=== PATIENT | female | born 2000 | race Caucasian/White ===

== ENCOUNTER 2022-06-08 12:15 | Outpatient (CLI) | payer BC, SELFPAY ==
--- NOTE | ~2022-06-08 | US_ITS ---
EXAMINATION: US OB follow up DATE: 06/08/2022 14:17 INDICATION: growth check. Third trimester. TECHNIQUE: Real-time ultrasound of the pelvis was performed. COMPARISON: None. FINDINGS: There is a single living fetus in vertex presentation. The placenta is fundal. heart rate is 1 42 beats per minute (bpm). The amniotic fluid index is 8.4 cm, which is normal. The following biometric data were obtained: Biparietal diameter (BPD): 8.6 cm; head circumference (HC): 32.7 cm; abdominal circumference (AC): 30 .5 cm; femur length (FL): 6.7 cm. These measurements are concordant. Estimated weight is 2509 g +/- 376 g, which correlates with the 16th percentile when 07/04/22 is used as estimated date of delivery. As single measurements, these parameters are each equal to the following estimated gestational ages: BPD: 34 weeks 4 days. HC: 37 weeks 0 days. AC: 34 weeks 3 days. FL: 34 weeks 4 days. estimated gestational age based solely on measurements from this exam is 35 weeks 1 days +/- 2 weeks 3 days. IMPRESSION: 1. Single living fetus in vertex presentation. 2. Estimated weight is 2509 g +/- 376 g, which correlates with the 16th percentile when 07/04/22 is used as estimated date of delivery. Reviewed, dictated and finalized at location A. IFICATION WRITER
[2022-06-08 12:44] VITALS: BP 154/82; PULSE 100
[2022-06-08 12:45] VITALS: BP 145/97; PULSE 83
[2022-06-08 12:50] LABS: Basophils Percent Auto 0.3 % (0.2-1.2); Eosinophils Absolute Auto 0.1 K/mm3 (0-0.3); Eosinophils Percent Auto 0.4 % (0-4.4); Hematocrit 35.1 % (37.0-47.0); Hemoglobin 11.4 g/dL (12.0-15.0); Immature Granulocyte Absolute 0.12 K/mm3 (0.00-0.031); Lymphocytes Absolute Auto 2.09 K/mm3 (0.9-3.2); Lymphocytes Percent Auto 17.8 % (18.3-44.2); Mean Corpuscular HGB Conc 32.5 g/dl (32-36); Mean Corpuscular Hemoglobin 30.2 pg (26-34); Mean Corpuscular Volume 93.1 fl (80-100); Mean Platelet Volume 9.1 fl (7.4-10.4); Monocytes Absolute Auto 0.7 K/mm3 (0.1-0.6); Monocytes Percent Auto 6.2 % (2.6-8.5); Neutrophils Absolute Auto 8.7 K/mm3 (1.3-6.7); Neutrophils Percent Auto 74.3 % (45.5-73.1); Platelet Count Result 274 k/mm3 (150-375); Red Blood Count 3.77 M/mm3 (4.2-5.4); Red Cell Distribution Width 13.2 % (11.5-14.5); White Blood Count 11.7 K/mm3 (4.5-10.0)
[2022-06-08 13:00] VITALS: BP 148/98; PULSE 98
[2022-06-08 13:09] LABS: Alanine Aminotransferase 17 U/L (6-35); Alkaline Phosphatase 182 U/L (38-126); Anion Gap 6 mmol/L (8-16); Aspartate Amino Transferase 20 U/L (14-36); Bilirubin,Total 0.3 mg/dL (0.2-1.3); Blood Urea Nitrogen 3 mg/dL (7-17); Calcium 8.5 mg/dL (8.4-10.2); Carbon Dioxide 23 mmol/L (22-30); Chloride 109 mmol/L (98-107); Estimated Glomerular Filt Rate > 60; Glucose 77 mg/dL (65-110); Potassium 3.3 mmol/L (3.4-5.0); Sodium 138 mmol/L (137-145); Uric Acid 2.9 mg/dL (2.5-7.5)
[2022-06-08 13:11] LABS: Add Urine Microscopic? YES; Appearance Urine Slightly Cloudy (Clear); Color Urine Yellow (Yellow)
[2022-06-08 13:12] LABS: Bilirubin Urine Negative (Negative); Blood Urine Trace-Lysed (Negative); Glucose Urine UA Negative (Negative); Ketones Urine Negative (Negative); Nitrate Urine Negative (Negative); Protein Urine Negative (Negative); Specific Grav Ur 1.015 (1.001-1.035)
[2022-06-08 13:13] LABS: Leukocyte Esterase Ur 2+ LEU/UL (NEGATIVE); Urobilinogen Urine 0.2 mg/dL (<2.0)
[2022-06-08 13:14] LABS: Creatinine Urine 31.4 mg/dL; Total Protein Urine Random 15 mg/dL; Ur Ttl Prot Creatinine Ratio 0.48 mg/mg (0-0.20)
[2022-06-08 13:15] VITALS: BP 137/84; PULSE 102
[2022-06-08 13:16] LABS: Bacteria Urine Trace /hpf; RBC Urine 0-2 /hpf (0-2); Squamous Epithelial Cell Urine Many /hpf (Few)
[2022-06-08 13:30] VITALS: BP 142/96; PULSE 103
[2022-06-08 14:00] VITALS: BP 137/84; PULSE 93
[2022-06-08] MEDS: BETAMETHASONE SOD PHOS/ACETATE 30 MG/5 ML VIAL 12 MG IM (14:28)
== END 2022-06-08 14:40 | disposition home or self-care (01) ==
LOC: ANHOBOP 12:22 → ANHOBPP 12:24
PROVIDERS: Advanced Practice Midwife; PCP Physician Assistant Medical; Visit Provider Obstetrics & Gynecology Gynecology
DX: O13.9 Gestational [pregnancy-induced] hypertension without significant proteinuria, unspecified trimester (principal); Z3A.00 Weeks of gestation of pregnancy not specified
CPT/HCPCS: 36415; 59025; 76816; 80053; 81001; 82570; 84156; 84550; 85025; 87086; 87088; 96372; 99199; J0702

== ENCOUNTER 2022-06-09 14:22 | Outpatient (CLI) | payer BC, SELFPAY ==
[2022-06-09] MEDS: BETAMETHASONE SOD PHOS/ACETATE 30 MG/5 ML VIAL 12 MG IM (14:31)
[2022-06-09 17:34] LABS: Collection Time Urine 24 HOURS
[2022-06-09 17:38] LABS: Patient Weight 184 Lbs; Total Volume 24 Hour Urine 5200 ml
[2022-06-09 17:43] LABS: Total Volume 24 Hour Urine 5200 ml
[2022-06-09 17:52] LABS: Total Protein Urine Random 18 mg/dL
[2022-06-09 17:53] LABS: Creatinine Clearance Urine 160.2 ml/min (75-125); Creatinine Urine 24.4 mg/dL
[2022-06-09 18:02] LABS: Total Protein Urine 24 Hr 936 mg/24hr (28-141)
== END 2022-06-09 14:23 | disposition home or self-care (01) ==
LOC: ANHOBOP 14:26
PROVIDERS: PCP Physician Assistant Medical; Visit Provider Obstetrics & Gynecology Gynecology
DX: O13.9 Gestational [pregnancy-induced] hypertension without significant proteinuria, unspecified trimester (principal); Z3A.00 Weeks of gestation of pregnancy not specified
CPT/HCPCS: 81050; 82575; 84156; 96372; J0702

== ENCOUNTER 2022-06-10 10:01 | Inpatient (IN) | payer BC, SELFPAY ==
[2022-06-10] VITALS (56 sets, daily range): BP systolic 63–144; BP diastolic 37–95; PULSE 77–260; O2SAT 94–100; BMI 27.3
[2022-06-10 11:25] LABS: Basophils Percent Auto 0.2 % (0.2-1.2); Hematocrit 31.7 % (37.0-47.0); Hemoglobin 10.6 g/dL (12.0-15.0); Immature Granulocyte Absolute 0.26 K/mm3 (0.00-0.031); Immature Granulocyte Percent A 1.3 % (0-0.5); Lymphocytes Absolute Auto 2.67 K/mm3 (0.9-3.2); Lymphocytes Percent Auto 13.6 % (18.3-44.2); Mean Corpuscular HGB Conc 33.4 g/dl (32-36); Mean Corpuscular Hemoglobin 29.7 pg (26-34); Mean Corpuscular Volume 88.8 fl (80-100); Mean Platelet Volume 9.5 fl (7.4-10.4); Monocytes Absolute Auto 1.2 K/mm3 (0.1-0.6); Monocytes Percent Auto 5.9 % (2.6-8.5); Neutrophils Absolute Auto 15.5 K/mm3 (1.3-6.7); Platelet Count Result 295 k/mm3 (150-375); Red Blood Count 3.57 M/mm3 (4.2-5.4); Red Cell Distribution Width 13.2 % (11.5-14.5); White Blood Count 19.6 K/mm3 (4.5-10.0)
[2022-06-10 11:35] LABS: Alanine Aminotransferase 18 U/L (6-35); Albumin Level 3.7 g/dL (3.5-5.1); Alkaline Phosphatase 176 U/L (38-126); Anion Gap 6 mmol/L (8-16); Aspartate Amino Transferase 19 U/L (14-36); Bilirubin,Total 0.3 mg/dL (0.2-1.3); Blood Urea Nitrogen 3 mg/dL (7-17); Calcium 8.7 mg/dL (8.4-10.2); Carbon Dioxide 22 mmol/L (22-30); Chloride 106 mmol/L (98-107); Estimated Glomerular Filt Rate > 60; Glucose 90 mg/dL (65-110); Potassium 3.2 mmol/L (3.4-5.0); Sodium 134 mmol/L (137-145)
[2022-06-10 11:36] LABS: Uric Acid 2.3 mg/dL (2.5-7.5)
[2022-06-10] MEDS: miSOPROStol 50 MCG TABLET VAGINAL (11:50)
[2022-06-10 12:16] LABS: HIV 1/2 Ab P24 Ag Result Negative (Negative)
--- NOTE | 2022-06-10 17:11 | WPDOBADMIT ---
Obstetrics - Admit Note Admission Note: record reviewed. No pertinent additions to the history and/or any subsequent changes in the physical findings that are not consistent with the expected course of the were found. Additions to the history and/or subsequent changes in the physical findings follow. Preelampsia.
--- NOTE | 2022-06-10 17:30 | PM.OBPNLAB ---
Pain Control Date/time seen: 06/10/22 17:20 Pain control: tolerating well Comments: Feeling intermittent cramping/tightening Pelvic Exam Dilation (cm): 1 (1.5) Effacement (%): 50 station: -3 (moderate consistency) Amniotic membrane status: Intact Contractions Monitor mode: External Contraction frequency: 3 Contraction duration: 60 Status status: Category ll Comments: Reassured by moderate variability and accelerations. Assessment and Plan Assessment: induction ongoing Comments: CNM to bedside at about 1700. Discussed preeclampsia in detail and answered questions. Discussed IOL process and expectations. SVE 1.5/50/-3 and moderate consistency. Discussed option of placing tavarez balloon for cervical ripening and pt is agreeable. Placed pt in lithotomy position. Tavarez catheter inserted through cervical os using stylette. Inflated with 60 ml sterile saline and stylette removed. Tubing secured to pt's thigh. Plan for RN to place gentle traction on the catheter hourly. Due to frequency of contractions, will not place 2nd cytotec or start oxytocin at this time. In one hour, if ctx have dissipated and FHTs remain reassuring, plan to place Cytotec 25mcg. Pt's mother and partner present and supportive. Anticipate vaginal .
[2022-06-10] MEDS: fentaNYL CITRATE INJ (*CRX) 100 MCG/2 ML VIAL 50 MCG IV PUSH (17:54)
--- NOTE | 2022-06-10 18:05 | WPDANESEPP ---
Anes - Eval Pre Procedure Procedure: labor epidural Date/Time: 06/10/22 18:05 Pre Op Diagnosis: IOL Patient Data Age: 21 Gender: F Height: 1.75 m Weight: 84 kg Last Vital Signs Pulse 94 06/10/22 16:45 BP 134/83 06/10/22 16:45 Pulse Ox 100 06/10/22 17:01 Allergies Allergy/AdvReac Type Severity Reaction Status Date / Time No Known Allergies Allergy Unverified 11/01/13 15:22 Home Medications Medication Instructions Recorded Confirmed Type vit no.95-ferrous 1 tablet PO DAILY 06/10/22 06/10/22 History fumarate 28 mg-folic acid 800 mcg tablet () Laboratory Tests 06/10/22 06/10/22 06/10/22 10:38 10:38 10:38 WBC 19.6 K/mm3 H K/mm3 (4.5-10.0) RBC 3.57 M/mm3 L M/mm3 (4.2-5.4) Hgb 10.6 g/dL L g/dL (12.0-15.0) Hct 31.7 % L % (37.0-47.0) MCV 88.8 fl fl (80-100) MCH 29.7 pg pg (26-34) MCHC 33.4 g/dl g/dl (32-36) RDW 13.2 % % (11.5-14.5) Plt Count 295 k/mm3 k/mm3 (150-375) MPV 9.5 fl fl (7.4-10.4) Immature Gran % (Auto) 1.3 % H % (0-0.5) Neut % (Auto) 79.0 % H % (45.5-73.1) Lymph % (Auto) 13.6 % L % (18.3-44.2) [place] % (Auto) 5.9 % % (2.6-8.5) Eos % (Auto) 0.0 % % (0-4.4) Baso % (Auto) 0.2 % % (0.2-1.2) Lymph # (Auto) 2.67 K/mm3 K/mm3 (0.9-3.2) [place] # (Auto) 1.2 K/mm3 H K/mm3 (0.1-0.6) Eos # (Auto) 0.0 K/mm3 K/mm3 (0-0.3) Baso # (Auto) 0.0 K/mm3 K/mm3 (0.0-0.1) Abs Immat Gran (auto) 0.26 K/mm3 H K/mm3 (0.00-0.031) Absolute Neuts (auto) 15.5 K/mm3 H K/mm3 (1.3-6.7) Absolute Nucleated RBC 0.0 K/mm3 K/mm3 (0.0-0.012) Nucleated RBC % 0.0 % % (0.0-0.2) Sodium Potassium Chloride Carbon Dioxide Anion Gap BUN Creatinine Estim Creat Clear Calc Estimated GFR Glucose Uric Acid 2.3 mg/dL L mg/dL (2.5-7.5) Calcium Total Bilirubin AST ALT Alkaline Phosphatase Total Protein Albumin RPR HIV 1&2 Ab/P24 Ag 4thGn Negative (Negative) Blood Type Antibody Screen 06/10/22 06/10/22 06/10/22 10:38 10:38 10:39 WBC RBC Hgb Hct MCV MCH MCHC RDW Plt Count MPV Immature Gran % (Auto) Neut % (Auto) Lymph % (Auto) [place] % (Auto) Eos % (Auto) Baso % (Auto) Lymph # (Auto) [place] # (Auto) Eos # (Auto) Baso # (Auto) Abs Immat Gran (auto) Absolute Neuts (auto) Absolute Nucleated RBC Nucleated RBC % Sodium 134 mmol/L L mmol/L (137-145) Potassium 3.2 mmol/L L mmol/L (3.4-5.0) Chloride 106 mmol/L mmol/L (98-107) Carbon Dioxide 22 mmol/L mmol/L (22-30) Anion Gap 6 mmol/L L mmol/L (8-16) BUN 3 mg/dL L mg/dL (7-17) Creatinine 0.40 mg/dL L mg/dL (0.7-1.0) Estim Creat Clear Calc Not Reportable Estimated GFR > 60 (59 - ) Glucose 90 mg/dL mg/dL (65-110) Uric Acid Calcium 8.7 mg/dL mg/dL (8.4-10.2) Total Bilirubin 0.3 mg/dL mg/dL (0.2-1.3) AST 19 U/L U/L (14-36) ALT 18 U/L U/L (6-35) Alkaline Phosphatase 176 U/L H U/L (38-126) Total Protein 7.0 g/dL g/dL (6.3-8.2) Albumin 3.7 g/dL g/dL (3.5-5.1) RPR Pending HIV 1&2 Ab/P24 Ag 4thGn Blood Type
[2022-06-10] MEDS: miSOPROStol 25 MCG TABLET VAGINAL (18:30)
[2022-06-11] VITALS (212 sets, daily range): BP systolic 74–152; BP diastolic 34–103; PULSE 25–193; RESP 16–18; TEMP 36.8–37.5; O2SAT 79–100
[2022-06-11] MEDS: LACTATED RINGERS 1,000 ML 125 ML IV CONT ×3 (03:05→12:48)
[2022-06-11] MEDS: AMPICILLIN 2 GM/NS 100 ML 2 GM/100 ML BAG IVPB (04:30)
[2022-06-11] MEDS: OXYTOCIN 30 UNITS/NS 500 ML 30 UNITS/500 ML BAG 6 UNITS IV CONT (04:30)
--- NOTE | 2022-06-11 07:37 | PM.OBPNLAB ---
Pain Control Date/time seen: 06/11/22 07:20 Pain control: tolerating well and epidural Pelvic Exam Dilation (cm): 5 (1.5) Effacement (%): 50 station: -2 (soft) Amniotic membrane status: Intact Comments: head well applied to cervix Contractions Monitor mode: External Contraction frequency: 3 (not tracing well via toco) Contraction duration: 60 Contraction pattern: Regular Contraction phase: Contraction Contraction intensity: Strong/Firm Status status: Category ll Assessment and Plan Pitocin rate (mU/min): 24 Assessment: induction ongoing Comments: CNM to bedside. Discussed plan of care with pt, her partner, and her mother. Discussed recommendation for amniotomy including risks and benefits. Discussed placement of IUPC. Patient agreeable. Amniotomy performed with return of moderate amount of clear fluid. IUPC inserted but jeffrey blood returned. IUPC removed. Second IUPC placed more anterior. Initially blood-tinged fluid returns, this became more jeffrey. Contractions palpated externally which corresponded with the peak of IUPC tracing. Plan to leave this IUPC in place. Will not flush. If amnio infusion is indicated would recommend placement of an IUPC on the patient's right side. Pitocin decreased to 10 mL an hour with AROM,
--- NOTE | 2022-06-11 08:06 | PM.OBPNLAB ---
Pain Control Date/time seen: 06/11/22 08:06 Pelvic Exam Dilation (cm): 5 (1.5) Effacement (%): 50 station: -2 (soft) Amniotic membrane status: Ruptured Contractions Monitor mode: Internal Status status: Category ll Assessment and Plan Pitocin rate (mU/min): 10 Comments: Due to variable decelerations, new IUPC placed on pt's right side. Clear/very light blood tinged fluid returned. Pt positioned in high fowlers. Recommend frequent maternal position changes PRN. Anticipate vaginal .
[2022-06-11] MEDS: AMPICILLIN 1 GM/NS 50 ML 1 GM/50 ML BAG IVPB (08:45)
[2022-06-11] MEDS: TRANEXAMIC ACID 1,000MG/ISO100 1,000 MG/100 ML BAG 200 MG IVPB (11:54)
[2022-06-11 11:56] LABS: Rapid Plasma Reagin Non-Reactive (NonReactive)
[2022-06-11] MEDS: miSOPROStol 200 MCG TABLET 800 MCG RECTAL (11:58)
[2022-06-11] MEDS: OXYTOCIN 30 UNITS/NS 500 ML 30 UNITS/500 ML BAG 125 UNITS IV CONT ×2 (12:00→13:14)
--- NOTE | 2022-06-11 12:11 | P.PCNOB_ITS ---
OB - Delivery Note Procedure Delivery date: 06/11/22 Procedure: Events: Preeclampsia w/o severe features Induction method: Per Misoprostol Protocol and Per Pitocin Protocol Delivery augmentation: Rupture of Membranes Delivery monitor: External FHT, External Uterine and Internal Uterine Route of delivery: Episiotomy description: None Laceration Description: Labial (2nd degree, right sided) Delivery repair: vicryl Specimen: Yes Quantitative Blood Loss (ml): 630 Anesthesia type: Epidural Disposition: Floor Narrative: CNM to bedside. Patient progressed to rapidly. She delivered the head gently. There was immediate and excellent restitution followed by quick delivery of the anterior and posterior shoulders. The remainder of the infant was delivered easily and placed on the maternal abdomen. After 1 minute of life the cord was doubly clamped and cut. Cord blood and cord gases were obtained. The placenta delivered spontaneously in the [place] presentation. A right labial laceration was repaired. There was some atony in the lower uterine segment. Bimanual exam performed and clots expressed. TXA infused. After the repair 800 mcg of Cytotec was placed rectally. All delivery counts were correct [place] Baby Date of : 06/11/22 Time of : 11:31 Weeks of gestation at delivery: 36 Infant gender: Female Weight (pounds): 5 Weight (ounces): 9 presentation: vertex position: Right Occiput Anterior Placenta delivery description: Spontaneous Cord Vessel Description: 3 Vessels, Clamped/Cut and Delayed Cord Clamping score one minute: 8 score five minutes: 9
--- NOTE | 2022-06-11 12:16 | PM.DS ---
DS: Admitting Diagnosis Discharge Date 04/13/23 Admitting Diagnosis 21 y.o at 36 weeks. Preeclampsia DS: Discharge Diagnosis Discharge Diagnosis (1) Mother currently breast-feeding: Code(s): Z39.1 - Encounter for care and examination of lactating mother Status: Acute (2) (normal spontaneous vaginal delivery): Code(s): O80 - Encounter for full-term uncomplicated delivery Status: Acute (3) Preeclampsia: Code(s): O14.90 - Unspecified pre-eclampsia, unspecified trimester Status: Acute (4) hemorrhage: Code(s): O72.1 - Other immediate hemorrhage Status: Acute (5) Blood transfusion during current hospitalisation: Status: Acute DS: Summary Hospital Course Reason for hospitalization: Childbirth Hospital Course: Complicated by hemorrhage. Status at Discharge Functional status at discharge: independent ambulation Overall status at discharge: patient is progressing back to baseline Time Spent with Patient Time attestation: Total time spent providing and/or coordinating discharge services: Exam Narrative: Alert and oriented. Mood is pleasant and cooperative. Urinating without difficulty. Denies passing any large clots. Perineum with minimal edema. Fundus firm and below umbilicus. Const: General: cooperative, healthy appearing, no acute distress and alert Orientation/consciousness: patient oriented x3 Limitations: no limitations Resp: Effort & Inspection: normal respiratory effort Auscultation: clear to auscultation bilaterally Cardio: Rate: regular rate GI: Inspection: normal to inspection Neuro: General: patient oriented x3 Extrem: General: normal to inspection Psych: Appearance: grossly normal Mental Status: mental status grossly normal Affect: normal affect Thought process: Normal thought process present DS: Data Data Completed and Pending Labs on day of discharge: Labs from last 24 hours 06/10/22 06/10/22 10:39 10:38 RPR Non-reactive HIV 1&2 Ab/P24 Ag 4thGn Negative Discharge Plan Discharge Attending physician on discharge: Meño Carolina Discharging Clinician: Sonal Newman Anticipated Discharge Date/Time: 06/13/22 12:19 Patient Disposition: Home, Self-Care Activity: may shower Diet: as tolerated Discharge Instructions: Continue taking your vitamin and any other supplements as previously directed (Examples: Iron, Vitamin D). You may take Tylenol 1000mg over the counter every 6 hours as needed for pain. Do not exceed 4000mg of Tylenol daily. You may continue using tucks pads and dermoplast spray if needed for a few more days. Patient Instructions: Antibiotic Form Stand Alone Forms: General Discharge Information Follow-up/Referrals: Sonal Newman CNM [[employer] [place] [employer]] - (6 week post exam.) Discharge Medications: New docusate sodium 100 mg tablet 100 mg PO BID 14 Days Qty: 28 0RF polysaccharide iron complex 150 mg iron Capsule 150 mg PO BIDWM 30 Days Qty: 60 0RF ibuprofen 600 mg Tablet 600 mg PO Q6H PRN (Reason: Cramping) 14 Days Qty: 30 0RF Continued PNV cmb#95-ferrous fumarate-FA [] 28 mg iron- 800 mcg Tablet 1 tablet PO DAILY Date of admission: 06/10/22 10:01 Primary Care Provider: Irais Boss Admitting Provider: Gill Saavedra Attending physician on admission: Gill Saavedra Condition: Stable
[2022-06-11] MEDS: CARBOPROST TROMETHAMINE 250 MCG/ML AMPUL IM (12:47)
[2022-06-11] MEDS: SODIUM CHLORIDE 0.9% IV 1,000 ML 999 ML IV CONT (12:57)
[2022-06-11 13:11] LABS: Basophils Absolute Auto 0.1 K/mm3 (0.0-0.1); Basophils Percent Auto 0.2 % (0.2-1.2); Hematocrit 29.1 % (37.0-47.0); Hemoglobin 9.5 g/dL (12.0-15.0); Immature Granulocyte Percent A 0.8 % (0-0.5); Lymphocytes Absolute Auto 3.47 K/mm3 (0.9-3.2); Lymphocytes Percent Auto 13.4 % (18.3-44.2); Mean Corpuscular HGB Conc 32.6 g/dl (32-36); Mean Corpuscular Hemoglobin 29.3 pg (26-34); Mean Corpuscular Volume 89.8 fl (80-100); Mean Platelet Volume 9.6 fl (7.4-10.4); Monocytes Percent Auto 7.7 % (2.6-8.5); Neutrophils Absolute Auto 20.1 K/mm3 (1.3-6.7); Neutrophils Percent Auto 77.9 % (45.5-73.1); Platelet Count Result 312 k/mm3 (150-375); Red Blood Count 3.24 M/mm3 (4.2-5.4); Red Cell Distribution Width 13.1 % (11.5-14.5); White Blood Count 25.8 K/mm3 (4.5-10.0)
--- NOTE | 2022-06-11 13:13 | PM.OBPNVD ---
OB - PN: Subj Subjective Date/time seen: 06/11/22 12:40 OB - PN: Obj Data Labs 06/10/22 10:38 06/10/22 10:38 Labs: Laboratory Results - last 24 hr 06/10/22 06/10/22 10:38 10:39 RPR Non-reactive Blood Type A Positive Antibody Screen Negative Crossmatch See Detail OB - PN A/P Time Spent With Patient Time: Total time spent is greater than 50% in coordination of care (as documented) at patient's floor/unit and/or counseling patient: Exam Narrative: CNM called to bedside to assess vaginal bleeding. Fundus moderate to firm with large amount of blood on lilly pad at perineum. Some quarter sized clots expressed with fundal massage. Bimanual exam performed and a large gush of dark red blood with clots was returned. Fundus firm. Ordered Hemabate, 2nd IV to be started, and NS bolus. Called Dr. Carolina to come to bedside. PT, PTT, CBC ordered. MD to bedside for further evaluation and exam. Total QBL for this hemorrhage is 1906ml (current total blood loss including delivery 2536ml). Plan to administer 2 units PRBCs, 1 Liter NS, 1 Liter LR, and 3rd bag of Oxytocin. Discussed risks and benefits of blood transfusion with pt and she is agreeable. Family remains present and are supportive. All questions answered. Plan to repeat CBC 2 hours after 2nd unit of PRBCs.
[2022-06-11] MEDS: FAMOTIDINE 20 MG/2 ML VIAL IV PUSH (13:58)
[2022-06-11] MEDS: LOPERAMIDE HCL 2 MG CAPSULE 4 MG PO (13:58)
--- NOTE | 2022-06-11 14:26 | PC.NURSE ---
Sonal FISCHER updated on the pt. QBL total and pt pain level reported. Order received for pt to have [place] 5/325 Q4HR prn for pain. Fluid orders clarified with CNM. Continue the pitocin 125ml/hr til finished with current bag. D/C LR when fluids finished. Continue NS after blood transfusions until bag is finished. CNM order hourly fundal checks be assessed. No other new orders.
[2022-06-11] MEDS: HYDROcodone/acetaminophen (*CRX) 5-325 MG TABLET 1 TAB PO ×2 (14:31→20:35)
[2022-06-11] MEDS: ceFAZolin 2 GM/D5W 50 ML 2 GM/50 ML BAG IVPB (15:11)
--- NOTE | 2022-06-11 15:48 | PC.NURSE ---
All entry under Mary Turner RN are made by Naye Burgos RN.
[2022-06-11] MEDS: IBUPROFEN 600 MG TABLET PO (20:34)
[2022-06-11] MEDS: POLYSACCHARIDE IRON COMPLEX 150 MG CAPSULE PO (20:34)
[2022-06-12] VITALS: BP 114/71; PULSE 74; RESP 18; TEMP 36.7; O2SAT 100
[2022-06-12] MEDS: IBUPROFEN 600 MG TABLET PO ×2 (04:48→13:53)
[2022-06-12 05:00] VITALS: BP 134/87; PULSE 75; RESP 18; TEMP 36.5; O2SAT 100
[2022-06-12 05:26] LABS: Basophils Absolute Auto 0.1 K/mm3 (0.0-0.1); Basophils Percent Auto 0.3 % (0.2-1.2); Eosinophils Absolute Auto 0.1 K/mm3 (0-0.3); Eosinophils Percent Auto 0.3 % (0-4.4); Hematocrit 33.6 % (37.0-47.0); Hemoglobin 10.9 g/dL (12.0-15.0); Immature Granulocyte Absolute 0.28 K/mm3 (0.00-0.031); Immature Granulocyte Percent A 1.3 % (0-0.5); Lymphocytes Absolute Auto 3.72 K/mm3 (0.9-3.2); Lymphocytes Percent Auto 17.5 % (18.3-44.2); Mean Corpuscular HGB Conc 32.4 g/dl (32-36); Mean Corpuscular Hemoglobin 29.7 pg (26-34); Mean Corpuscular Volume 91.6 fl (80-100); Mean Platelet Volume 9.4 fl (7.4-10.4); Monocytes Absolute Auto 1.7 K/mm3 (0.1-0.6); Monocytes Percent Auto 8.2 % (2.6-8.5); Neutrophils Absolute Auto 15.3 K/mm3 (1.3-6.7); Neutrophils Percent Auto 72.4 % (45.5-73.1); Platelet Count Result 251 k/mm3 (150-375); Red Blood Count 3.67 M/mm3 (4.2-5.4); Red Cell Distribution Width 13.6 % (11.5-14.5); White Blood Count 21.2 K/mm3 (4.5-10.0)
[2022-06-12] MEDS: BENZOCAINE 20% AER SPR (*SP) 56 GM CAN 1 SPRAY TOPICAL (08:09)
[2022-06-12] MEDS: WITCH HAZEL 40 PADS 1 PAD TOPICAL (08:09)
[2022-06-12] MEDS: POLYSACCHARIDE IRON COMPLEX 150 MG CAPSULE PO ×2 (08:10→16:56)
[2022-06-12] MEDS: DOCUSATE SODIUM 100 MG CAPSULE PO ×2 (08:10→16:56)
[2022-06-12] MEDS: MULTIVIT/MIN/PREN/FOL AC/IRON TABLET 1 TAB PO (08:10)
[2022-06-12 08:53] VITALS: BP 129/83; PULSE 75; PULSE 85; RESP 18; TEMP 36.4; O2SAT 100
[2022-06-12 13:30] VITALS: BP 128/67; PULSE 80; RESP 16; TEMP 36.8; O2SAT 100
--- NOTE | 2022-06-12 14:36 | PM.OBPNVD ---
OB - PN: Subj Subjective Date/time seen: 06/12/22 14:36 21-year-old female 24hours status post vaginal delivery with hemorrhage. She has had no significant bleeding since delivery, and denies any symptomatology. Has been up to the bathroom and ambulating in the room without difficulty. Feels well overall. And rest elevated blood pressures, no headaches blurred vision chest pain or other symptomatology consistent with elevated pressures as well. OB - PN: Obj Data Labs 06/12/22 04:53 06/10/22 10:38 Labs: Laboratory Results - last 24 hr 06/10/22 06/12/22 10:38 04:53 WBC 21.2 H RBC 3.67 L Hgb 10.9 L Hct 33.6 L MCV 91.6 MCH 29.7 MCHC 32.4 RDW 13.6 Plt Count 251 MPV 9.4 Immature Gran % (Auto) 1.3 H Neut % (Auto) 72.4 Lymph % (Auto) 17.5 L [place] % (Auto) 8.2 Eos % (Auto) 0.3 Baso % (Auto) 0.3 Lymph # (Auto) 3.72 H [place] # (Auto) 1.7 H Eos # (Auto) 0.1 Baso # (Auto) 0.1 Abs Immat Gran (auto) 0.28 H Absolute Neuts (auto) 15.3 H Absolute Nucleated RBC 0.0 Nucleated RBC % 0.0 Blood Type A Positive Antibody Screen Negative Crossmatch See Detail OB - PN A/P Assessment and Plan (1) Preeclampsia: Code(s): O14.90 - Unspecified pre-eclampsia, unspecified trimester Status: Acute Assessment and Plan: 1. Continue to monitor blood pressures and also I have advised at length signs and symptoms to look for if blood pressure is increasing post discharge. (2) hemorrhage: Code(s): O72.1 - Other immediate hemorrhage Status: Acute Assessment and Plan: 1. Reviewed delivery and interventions with the patient. She states good understanding, questions have been answered, at this point do not anticipate any issues with this diagnosis. Plan day: 1 Plan: routine care Time Spent With Patient Time: Total time spent is greater than 50% in coordination of care (as documented) at patient's floor/unit and/or counseling patient:
[2022-06-12 17:33] VITALS: BP 131/67; PULSE 83; RESP 18; TEMP 36.4; O2SAT 100
[2022-06-12 20:00] VITALS: BP 128/78; PULSE 88; RESP 18; TEMP 36.7; O2SAT 99
[2022-06-13] VITALS: BP 127/69
[2022-06-13 04:12] VITALS: BP 136/83
[2022-06-13 07:14] LABS: Hematocrit 31.7 % (37.0-47.0); Hemoglobin 10.5 g/dL (12.0-15.0); Mean Corpuscular HGB Conc 33.1 g/dl (32-36); Mean Corpuscular Hemoglobin 29.7 pg (26-34); Mean Corpuscular Volume 89.5 fl (80-100); Mean Platelet Volume 9.5 fl (7.4-10.4); Platelet Count Result 264 k/mm3 (150-375); Red Blood Count 3.54 M/mm3 (4.2-5.4); Red Cell Distribution Width 13.5 % (11.5-14.5); White Blood Count 16.5 K/mm3 (4.5-10.0)
[2022-06-13 07:25] LABS: Alanine Aminotransferase 18 U/L (6-35); Albumin Level 3.1 g/dL (3.5-5.1); Alkaline Phosphatase 125 U/L (38-126); Anion Gap 3 mmol/L (8-16); Aspartate Amino Transferase 26 U/L (14-36); Bilirubin,Total 0.1 mg/dL (0.2-1.3); Blood Urea Nitrogen 8 mg/dL (7-17); Calcium 7.9 mg/dL (8.4-10.2); Carbon Dioxide 25 mmol/L (22-30); Chloride 106 mmol/L (98-107); Estimated CRCL calculation 189 ml/min; Estimated Glomerular Filt Rate > 60; Glucose 80 mg/dL (65-110); Potassium 3.5 mmol/L (3.4-5.0); Sodium 134 mmol/L (137-145)
--- NOTE | 2022-06-13 07:56 | P.PNOB_ITS ---
OB - PN: Subj Subjective Date/time seen: 06/13/22 07:56 Patient comments: no complaints and pain well controlled baby status: doing well and nursing well [place] feeding status: other (supplementing with formula) OB - PN: Obj Data Labs 06/13/22 07:07 06/13/22 07:07 Labs: Laboratory Results - last 24 hr 06/11/22 06/13/22 06/13/22 12:59 07:07 07:07 WBC 16.5 H RBC 3.54 L Hgb 10.5 L Hct 31.7 L MCV 89.5 MCH 29.7 MCHC 33.1 RDW 13.5 Plt Count 264 MPV 9.5 D-Dimer Cancelled Sodium 134 L Potassium 3.5 Chloride 106 Carbon Dioxide 25 Anion Gap 3 L BUN 8 D Creatinine 0.40 L Estim Creat Clear Calc 189 Estimated GFR > 60 Glucose 80 Calcium 7.9 L Total Bilirubin 0.1 L AST 26 ALT 18 Alkaline Phosphatase 125 Total Protein 6.0 L Albumin 3.1 L OB - PN A/P Plan day: 2 Plan: discharge home Time Spent With Patient Time: Total time spent is greater than 50% in coordination of care (as documented) at patient's floor/unit and/or counseling patient: Review of Systems Review of Systems: All systems reviewed & are unremarkable except as noted in HPI and below Exam Narrative: Alert and oriented. Mood is pleasant and cooperative. Urinating without difficulty. Denies passing any large clots. Perineum with minimal edema. Fundus firm and below umbilicus. Const: General: cooperative, healthy appearing, no acute distress and alert Orientation/consciousness: patient oriented x3 Limitations: no limitations Resp: Effort & Inspection: normal respiratory effort Auscultation: clear to auscultation bilaterally Cardio: Rate: regular rate GI: Inspection: normal to inspection Neuro: General: patient oriented x3 Extrem: General: normal to inspection Psych: Appearance: grossly normal Mental Status: mental status grossly normal Affect: normal affect Thought process: Normal thought process present
[2022-06-13] MEDS: DOCUSATE SODIUM 100 MG CAPSULE PO (08:09)
[2022-06-13] MEDS: POLYSACCHARIDE IRON COMPLEX 150 MG CAPSULE PO (08:09)
[2022-06-13] MEDS: MULTIVIT/MIN/PREN/FOL AC/IRON TABLET 1 TAB PO (08:10)
[2022-06-13 08:30] VITALS: BP 138/86; PULSE 68; RESP 18; TEMP 36.4
--- NOTE | 2022-06-13 10:00 | PC.NURSE ---
Patient viewed the discharge video Mother & Baby Care, The First Two Weeks . Patient was given the opportunity and encouraged to ask questions. Patient verbalized understanding of information shared and has been given the mother/baby guide for home reference.
[2022-06-14 10:37] VITALS: BP 139/88; PULSE 76; RESP 18; TEMP 37.3; O2SAT 100
== END 2022-06-13 10:55 | disposition home or self-care (01) | DRG 807 ==
LOC: ANHLDR 06-11 12:20 → ANHOB2 06-11 16:21
PROVIDERS: Advanced Practice Midwife; Obstetrics & Gynecology; Admitting Provider Obstetrics & Gynecology Gynecology; PCP Physician Assistant Medical; Visit Provider Obstetrics & Gynecology Gynecology
DX: O14.94 Unspecified pre-eclampsia, complicating childbirth (principal); Z37.0 Single live birth; Z3A.36 36 weeks gestation of pregnancy; O36.8330 Maternal care for abnormalities of the fetal heart rate or rhythm, third trimester, not applicable or unspecified; O70.1 Second degree perineal laceration during delivery; O72.1 Other immediate postpartum hemorrhage
CPT/HCPCS: 36415; 36430; 80053; 84550; 85025; 85027; 86592; 86703; 86850; 86900; 86901; 86923; 88307; A9270; G0432; J0290; J0690; J2590; J2795; J3010; J7030; J7120; P9016